=== PATIENT | female | born 1945 | race Caucasian/White ===

== ENCOUNTER 2017-06-25 10:09 | Outpatient (CLI) | payer MEDICARE ==
--- NOTE | 2017-06-25 15:31 | MMO ---
BILATERAL SCREENING MAMMOGRAMS: Comparison: Prior mammograms dating back May 2010. This study is interpreted with the assistance of computer aided detection. FINDINGS: There is heterogeneously dense breast parenchyma which limits the sensitivity of mammography and coul d obscure underlying pathology. There is benign appearing calcification seen within each breast. Ther e is no evidence of a new dominant lesion, or suspicious grouping of calcification. Stable asymmetric parenchymal density of the upper left breast is present. IMPRESSION: BIRADS 2 - benign findings. Annual screening mammography recommended. POS: THOMAS
== END 2017-06-25 10:10 | disposition home or self-care (01) ==
LOC: SCSMAMMO 10:09
PROVIDERS: ATTEND Internal Medicine
DX: Z12.31 Encounter for screening mammogram for malignant neoplasm of breast (principal)
CPT/HCPCS: 77067

== ENCOUNTER 2018-06-29 10:43 | Outpatient (CLI) | payer MEDICARE ==
--- NOTE | 2018-06-29 12:32 | MMO ---
BILATERAL DIGITAL SCREENING MAMMOGRAM: Date: 06-29-18 Comparison: 06-25-17 This study is interpreted with the assistance of computer aided detection. FINDINGS: The patient's breasts are dense which does decrease the sensitivity for detection of pathology. No de finite evidence of masses or lesions seen. Benign appearing bilateral breasts calcifications seen. IMPRESSION: BIRADS category 2 - benign findings. POS: F[facility]
== END 2018-06-29 10:44 | disposition home or self-care (01) ==
LOC: SCSMAMMO 10:43
PROVIDERS: ATTEND Internal Medicine
DX: Z12.31 Encounter for screening mammogram for malignant neoplasm of breast (principal)
CPT/HCPCS: 77067